=== PATIENT | female | born 1985 | race Hispanic/Latino ===

== ENCOUNTER 2020-11-06 11:47 | Emergency (ER) | payer OTHER, SELFPAY ==
[2020-11-06] MEDS ORDERED: Ketorolac Tromethamine 30 MG/ML VIAL ONE (12:40)
[2020-11-06] MEDS ORDERED: Acetaminophen/Codeine 30-300mg Tablet ONE (12:41)
== END 2020-11-06 13:19 | disposition home or self-care (01) ==
LOC: CSHERS 11:47
DX: S76.111A Strain of right quadriceps muscle, fascia and tendon, initial encounter (principal); Z87.891 Personal history of nicotine dependence; X58.XXXA Exposure to other specified factors, initial encounter
CPT/HCPCS: 96372; 99283; J1885

== ENCOUNTER 2023-07-09 11:54 | Emergency (ER) | payer SELFPAY ==
[2023-07-09] MEDS ORDERED: Ketorolac Tromethamine 30 MG/ML VIAL ONE (12:31)
[2023-07-09 12:56] LABS: Bilirubin Neg (Negative); Blood, Urine 250 (Negative); Clarity Cloudy (Clear); Glucose, Urine (Dipstick) Normal (Negative); Ketone, Urine Negative (Negative); Leukocyte 500 (Negative); Nitrite Negative (Negative); Protein, Urine (Dipstick) 100 mg/dl (Neg-Trace); Specific Gravity, Urine 1.015 (1.005-1.030); Urobilinogen Normal mg/dL (Less than 2); pH, Urine 6.5 (5.0-9.0)
[2023-07-09 12:59] LABS: Pregnancy Test - Urine (BHCG) Negative (Negative); Pregu Control Background? CLEAR/WHITE (CLR/WHITE); Pregu Control Bar Appear? YES (CONTROL BAR); Specific Gravity 1.015 (1.002-1.036)
[2023-07-09 13:19] LABS: CAUTI Indications for Culture Dysuria,urgency,freq; RBC/HPF Greater than 50 HPF (0-3); WBC/HPF Greater Than 50 HPF (0-3)
[2023-07-09 13:20] LABS: Bacteria/HPF 2+ HPF (None Seen); Urine Culture Reflex Yes Yes
[2023-07-09] MEDS ORDERED: cefTRIAXone (ROCEPHIN) 1 GM VIAL ONE (13:35)
== END 2023-07-09 14:10 | disposition home or self-care (01) ==
LOC: CSHERS 11:54
DX: N39.0 Urinary tract infection, site not specified (principal); F17.210 Nicotine dependence, cigarettes, uncomplicated
CPT/HCPCS: 81001; 81025; 87077; 87086; 87186; 96372; 99283; J0696; J1885

== ENCOUNTER 2024-03-26 16:12 | Emergency (ER) | payer SELFPAY ==
[2024-03-26] MEDS ORDERED: Dexamethasone 10 MG/ML VIAL ONE (17:29)
[2024-03-26] MEDS ORDERED: Ibuprofen 200 MG TAB ONE (17:29)
[2024-03-26 17:33] LABS: Influenza A by NAA Not Detected (NotDetected); Influenza B by NAA Not Detected (NotDetected); SARS-CoV-2 NAA Rapid Test DETECTED (NotDetected)
== END 2024-03-26 18:24 | disposition home or self-care (01) ==
LOC: CSHERS 16:12
DX: U07.1 COVID-19 (principal); Z87.891 Personal history of nicotine dependence
CPT/HCPCS: 87081; 87430; 99283; J1100

== ENCOUNTER 2024-06-21 10:27 | Emergency (ER) | payer OTHER, SELFPAY ==
[2024-06-21] MEDS ORDERED: Clindamycin 150 MG CAP ONE (11:10)
== END 2024-06-21 11:20 | disposition home or self-care (01) ==
LOC: CSHERS 10:27
DX: K04.7 Periapical abscess without sinus (principal); K02.9 Dental caries, unspecified; F17.210 Nicotine dependence, cigarettes, uncomplicated
CPT/HCPCS: 99283

== ENCOUNTER 2025-06-01 14:46 | Emergency (ER) | payer SELFPAY ==
[2025-06-01 15:41] LABS: #Basophils 0.04 10x3/uL (0.0-0.2); #Eosinophils 0.14 10x3/uL (0.0-0.5); #Monocytes 0.69 10x3/uL (0.0-1.1); #Neutrophils 9.20 10x3/uL (1.5-8.4); %Basophils 0.3 % (0.0-2.0); %Eosinophils 1.0 % (0.0-6.0); %Lymphocytes 24.5 % (18.0-47.0); %Monocytes 5.1 % (0.0-10.0); %Neutrophils 68.5 % (40.0-75.0); Hematocrit 38.0 % (34.9-44.5); Hemoglobin 12.0 g/dL (12.0-15.5); Mean Corpuscular Hemoglobin 24.0 pg (27.0-33.0); Mean Corpuscular Volume 76.0 fL (81.6-98.3); Platelet Count 399 10x3/uL (150-450); Red Blood Cell (RBC) Count 5.00 10x6/uL (3.90-5.03); White Blood Cell (WBC) Count 13.44 10x3/uL (3.5-10.5)
[2025-06-01 15:56] LABS: BHCG - Serum Negative (NEGATIVE); Pregs Control Background? CLEAR/WHITE (CLR/WHITE); Pregs Control Bar Appear? YES (CONTROL BAR)
[2025-06-01 16:00] LABS: ALT (SGPT) 16 U/L (Less than 34); AST (SGOT) 19 U/L (11-34); Albumin 4.1 g/dL (3.1-4.5); Alkaline Phosphatase 65 U/L (40-110); Anion Gap 13 mmol/L (10-20); BUN (Urea Nitrogen) 13 mg/dL (7.0-18.7); Bilirubin, Total 0.3 mg/dL (0.3-1.2); Calc. Creatinine Clearance 0 mL/min (70-130); Calcium 9.4 mg/dL (7.8-10.44); Carbon Dioxide 23 mmol/L (22-29); Chloride 105 mmol/L (98-107); Globulin 3.7 g/dL (2.4-3.5); Glucose 109 mg/dL (70-105); Potassium 3.9 mmol/L (3.5-5.1); Sodium 137 mmol/L (136-145)
[2025-06-01] MEDS ORDERED: levETIRAcetam 500 MG (5 mL) VIAL ONE (16:57)
[2025-06-01 17:55] LABS: Glucose, Urine (Dipstick) Normal (Negative); Leukocyte Negative (Negative); Protein, Urine (Dipstick) 30 mg/dl (Neg-Trace); Specific Gravity, Urine 1.015 (1.005-1.030)
[2025-06-01 18:11] LABS: Bacteria/HPF None Seen HPF (None Seen); CAUTI Indications for Culture Alt mental st,lethar; RBC/HPF Greater than 50 HPF (0-3); WBC/HPF None Seen HPF (0-3)
[2025-06-01 18:12] LABS: Urine Culture Reflex No No
[2025-06-01 18:16] LABS: Cocaine Metabolite Screen Negative (Negative); THC/Cannabinoid Screen Negative (Negative); Tricyclic Screen Negative (Negative)
== END 2025-06-01 18:52 | disposition home or self-care (01) ==
LOC: CSHERS 14:46
DX: D72.829 Elevated white blood cell count, unspecified (principal); R31.9 Hematuria, unspecified; R29.700 NIHSS score 0; F17.290 Nicotine dependence, other tobacco product, uncomplicated; F17.210 Nicotine dependence, cigarettes, uncomplicated
CPT/HCPCS: 36415; 36416; 70450; 80053; 80306; 81001; 84703; 85025; 93005; 96374; J1953